=== PATIENT | male | born 1970 | race Caucasian/White ===

== ENCOUNTER → 2016-08-21 | Outpatient (CLI) | payer OTHER ==
[~2016-08-21] MED LIST: LOTREL 10/20 MG1 CAP PO
--- NOTE | ~2016-08-21 | US5 ---
[facility] Service of [facility] RADIOLOGY TEXT RESULTS PATIENT: LUCAS HIDALGO LOCATION: [facility] : 66 UNIT #: [id number] AGE: [address]: EH LIU SEX: M ORDER DR: [id number] [id number] [facility]. [place], [place] [address] [id number] O MR#: [id number] Acc #: [id number] NAME: LUCAS HIDALGO : 1970 SEX: M STUDY DATE/TIME: 08/21/2016 10:17 UNIT: [facility] ROOM: STUDY DESCRIPTION: US Abdominal Complete Attending Physician: Emili Washburn Referring Physician: Emili Washburn Ordering Physician: Emili Washburn Primary Care Physician: Rivka Gregroy M.D. MEDICAL IMAGING REPORT This report is preliminary unless electronic signature is present EXAM Abdominal ultrasound complete, 08/21/2016. INDICATION Recent diagnosis of elevated liver enzymes. Recent diagnosis of abdominal pain. TECHNIQUE Sonographic imaging of the abdomen was performed. COMPARISON No comparisons. FINDINGS The pancreas was not well visualized or assessed and obscured by bowel gas. Segmentally visualized aorta and IVC are unremarkable. The liver measures 15.2 cm long axis. There is difficulty penetrating the liver parenchyma with the ultrasound beam suggestive of fatty infiltration. The liver is otherwise unremarkable to the extent visualized. No ascites or intrahepatic ductal dilatation. No ascites. The kidneys are nonobstructed. The right measures 12.9 cm long axis and the left measures 12.7 cm. The left kidney is difficult to fully visualize due to obscuration of portions of the left portions of the left kidney by bowel gas. No shadowing stone or hydronephrosis of either kidney. The spleen measures 12.7 cm long axis. The gallbladder is sonographically unremarkable. No sonographic Xavier sign was described. Extrahepatic common bile duct measures 3-4 mm. IMPRESSION 1. Imaging features most characteristic of fatty infiltration of the liver. 2. Borderline splenic size. No evidence of ascites. [facility] of [facility] RADIOLOGY TEXT RESULTS PATIENT: LUCAS HIDALGO LOCATION: [facility] : 66 UNIT #: [id number] AGE: [address]: EH LIU SEX: M ORDER DR: 3. The remainder of the examination is negative. The pancreas was not visualized or assessed. Portions of both kidneys were difficult to assess and characterize due to obscuration by bowel gas as well. Dictated by... Eliseo Auguste M.D. THIS IS AN ELECTRONICALLY VERIFIED REPORT Eliseo Auguste M.D. at 08/22/2016 8:03 AM IBRAHIMA/renate TD: 08/21/2016 13:47 JOB #: [id number] MEDICAL IMAGING REPORT Page 1 of 1 COPY
== END | disposition home or self-care (01) ==
LOC: CGUS 09:51
DX: R10.9 Unspecified abdominal pain (principal); R79.89 Other specified abnormal findings of blood chemistry
CPT/HCPCS: 76700